=== PATIENT | female | born 1980 | race Caucasian/White ===

== ENCOUNTER → 2025-01-16 | Outpatient (CLI) | payer MEDICAID, SELFPAY | END | disposition home or self-care (01) | LOC: SWHD 09:23 | PROVIDERS: PCP Obstetrics & Gynecology; Referring Provider Obstetrics & Gynecology; Visit Provider Surgery | DX: I96 Gangrene, not elsewhere classified (principal); E11.621 Type 2 diabetes mellitus with foot ulcer; L97.321 Non-pressure chronic ulcer of left ankle limited to breakdown of skin; S61.401A Unspecified open wound of right hand, initial encounter; S91.001A Unspecified open wound, right ankle, initial encounter; X58.XXXA Exposure to other specified factors, initial encounter; I10 Essential (primary) hypertension; Z79.4 Long term (current) use of insulin; Z87.891 Personal history of nicotine dependence | CPT/HCPCS: 97597; 97598; 99213; A9270; G0463 ==

== ENCOUNTER → 2025-01-23 | Outpatient (CLI) | payer MEDICAID, SELFPAY | END | disposition home or self-care (01) | PROVIDERS: PCP Obstetrics & Gynecology; Referring Provider Obstetrics & Gynecology; Visit Provider Student in an Organized Health Care Education/Training Program | DX: E11.621 Type 2 diabetes mellitus with foot ulcer (principal); L97.321 Non-pressure chronic ulcer of left ankle limited to breakdown of skin; S91.002A Unspecified open wound, left ankle, initial encounter; S91.001A Unspecified open wound, right ankle, initial encounter; S61.401A Unspecified open wound of right hand, initial encounter; X58.XXXA Exposure to other specified factors, initial encounter; I10 Essential (primary) hypertension; Z79.4 Long term (current) use of insulin; Z87.891 Personal history of nicotine dependence | CPT/HCPCS: 99213; G0463 ==

== ENCOUNTER → 2025-02-01 | Outpatient (CLI) | payer MEDICAID, SELFPAY ==
--- NOTE | 2025-02-01 10:22 | XR_ITS ---
Examination: CT chest, without intravenous contrast. CT abdomen, without intravenous contrast. CT pelvis, without intravenous contrast. 2-D sagittal and coronal reconstructions. 3-D reconstructions. Date and time of exam:February 01, 2025 1109 hours INDICATIONS: Weight loss leg swelling and pain beginning 2 months ago CTDI vol (mgy) 8.7 DLP (MGycm)621 Technique: Multiple CT images, 3.0 mm slice thickness, obtained chest, abdomen, pelvis, with the high-resolution 64 slice scanner.. Sagittal and coronal 2-D reconstructions are obtained. 3-D reconstructions Low dose protocols were performed. One or more of the following dose reduction techniques were used; automated exposure control, adjustment of the mA and/or KV according to patient size, use of iterative reconstruction technique. Findings: No thoracic aortic aneurysm dilatation Pulmonary artery segments do not show significant enlargement No paratracheal tracheobronchial or bronchopulmonary adenopathy 6 mm pulmonary nodule right midlung image 102 No pneumonia or pulmonary edema Diffuse fatty infiltration throughout the liver with significant hepatomegaly 24 cm Absent gallbladder No extra hepatic biliary tract dilatation No pancreatic splenic lesion No renal or ureteral calculi, no hydronephrosis Abdominal aorta normal size No bowel obstruction Normal appendix No diverticulitis Anteverted uterus with satisfactory position intrauterine device Contracted urinary bladder Osseous structures intact IMPRESSION: No mediastinal lymphadenopathy 6 mm pulmonary nodule right midlung, with this study as baseline recommend 6 month follow-up CT chest without contrast to document stability of this pulmonary nodule No pneumonia, pulmonary edema or pleural disease Prominent hepatomegaly 24 cm with fatty infiltration Normal appendix No bowel obstruction
[2025-02-01 10:58] LABS: HCG Qualitative,Urine Negative
== END | disposition home or self-care (01) ==
PROVIDERS: PCP Student in an Organized Health Care Education/Training Program; Referring Provider Radiology Diagnostic Radiology; Visit Provider Student in an Organized Health Care Education/Training Program
DX: R91.1 Solitary pulmonary nodule (principal); K76.0 Fatty (change of) liver, not elsewhere classified; R63.4 Abnormal weight loss; Z32.00 Encounter for pregnancy test, result unknown
CPT/HCPCS: 71250; 74176; 81025

== ENCOUNTER → 2025-02-20 | Outpatient (CLI) | payer MEDICAID, SELFPAY | END | disposition home or self-care (01) | LOC: SWHD 09:05 | PROVIDERS: PCP Obstetrics & Gynecology; Referring Provider Obstetrics & Gynecology; Visit Provider Student in an Organized Health Care Education/Training Program | DX: E11.621 Type 2 diabetes mellitus with foot ulcer (principal); L97.321 Non-pressure chronic ulcer of left ankle limited to breakdown of skin; S91.002A Unspecified open wound, left ankle, initial encounter; S91.001A Unspecified open wound, right ankle, initial encounter; S61.401A Unspecified open wound of right hand, initial encounter; X58.XXXA Exposure to other specified factors, initial encounter; I10 Essential (primary) hypertension; Z79.4 Long term (current) use of insulin; Z87.891 Personal history of nicotine dependence | CPT/HCPCS: 99212; G0463 ==